=== PATIENT | male | born 1955 | race Caucasian/White ===

== ENCOUNTER 2017-12-05 09:02 | Emergency (ER) | payer BC ==
[~2017-12-05] VITALS: Ht 167.6 cm; Wt 83.9 kg
[2017-12-05] MEDS ORDERED: NORCO 5-325 TA1 EACH PO (10:03)
[2017-12-05 10:19] VITALS: BP 129/68
== END 2017-12-05 10:20 | disposition home or self-care (01) ==
LOC: M.ERS 09:02
DX: S86.911A Strain of unspecified muscle(s) and tendon(s) at lower leg level, right leg, initial encounter (principal); X58.XXXA Exposure to other specified factors, initial encounter; Y93.89 Activity, other specified; Y92.89 Other specified places as the place of occurrence of the external cause; Y99.8 Other external cause status